=== PATIENT | male | born 1955 | race Caucasian/White ===

== ENCOUNTER → 2022-01-28 | Outpatient (CLI) | payer MEDICARE ==
[~2022-01-28] MED LIST: BP MED; CIPR500 PO; ESCI10 PO; METR500 PO; NAPR550 PO; NEW MED; OXYASA5T PO; PROACE100 PO
== END | disposition home or self-care (01) ==
LOC: PLD 14:44 → LAB SHORT 14:44
DX: L57.0 Actinic keratosis (principal)
CPT/HCPCS: 88305

== ENCOUNTER → 2024-02-14 | Outpatient (CLI) | payer MEDICARE ==
[~2024-02-14] MED LIST changes: +ALLO100; +ALLOPURINOL100 M1 PO; +AMLO5 PO; +AMOCLA875 PO; +CEFDINIR300 M4 PO; +COLCHICINE0.6 MG; +DOXY100 PO; +LISI20; +LISINOPRIL-HCT1 EAC1 PO; +Robaxin750 MG PO; +TAMS.4ER PO
== END | disposition home or self-care (01) ==
LOC: LAB 08:10 → LAB SHORT 08:10
DX: R30.0 Dysuria (principal)
CPT/HCPCS: 87086

== ENCOUNTER 2024-02-23 14:21 | Emergency (ER) | payer MEDICARE ==
[~2024-02-23] VITALS: Ht 170.2 cm; Wt 85.3 kg
[2024-02-23 14:37] VITALS: BP 143/98
== END 2024-02-23 15:18 | disposition home or self-care (01) ==
LOC: ER 14:21
DX: R79.9 Abnormal finding of blood chemistry, unspecified (principal); I12.9 Hypertensive chronic kidney disease with stage 1 through stage 4 chronic kidney disease, or unspecified chronic kidney disease; N18.9 Chronic kidney disease, unspecified; Z87.01 Personal history of pneumonia (recurrent); Z79.899 Other long term (current) drug therapy; Z88.5 Allergy status to narcotic agent
CPT/HCPCS: 36415; 83605; 87040; 99283